=== PATIENT | female | born 1960 | race Caucasian/White ===

== ENCOUNTER 2016-06-02 06:59 | Day surgery (SDC) | payer OTHER ==
[~2016-06-02] VITALS: Ht 165.1 cm; Wt 73.9 kg
[2016-06-02] MEDS ORDERED: GLUCOPHAGE1000 MG PO (07:43)
[2016-06-02] MEDS ORDERED: ASPIR 8181 M1 PO (07:44)
[2016-06-02] MEDS ORDERED: fentaNYL 0.05 MG/ML VIAL ONE (08:06)
[2016-06-02] MEDS ORDERED: MIDAZOLAM 2 MG/2 ML VIAL ONE ×2 (08:07→08:31)
== END 2016-06-02 09:10 | disposition home or self-care (01) ==
LOC: MDS 06:59 → MMU 07:13 → MDS 09:10
PROVIDERS: ATTEND Internal Medicine Gastroenterology
DX: K29.70 Gastritis, unspecified, without bleeding (principal)
CPT/HCPCS: 36415; 43239; 82948; 86677; J2250; J7030